=== PATIENT | female | born 1935 | race Caucasian/White ===

== ENCOUNTER 2018-05-24 15:49 | Inpatient (IN) | payer MEDICARE, BC ==
[2018-05-24] MEDS ORDERED: Diabetic Tussin 200 MG/10 ML UDCUP PO PRN (18:07)
[2018-05-24] MEDS ORDERED: Ondansetron PF 4 MG/2 ML Vial IVP PRN ×2 (18:07)
[2018-05-24] MEDS ORDERED: Nitroglycerin 0.4 MG TAB (25 Tab Bottle) SL PRN (18:07)
[2018-05-24] MEDS ORDERED: cloNIDine 0.1 MG TAB PO PRN (18:07)
[2018-05-24] MEDS ORDERED: Bisacodyl 10 MG SUPP PR PRN (18:07)
[2018-05-24] MEDS ORDERED: Senokot S 8.6-50 MG TAB PO PRN ×2 (18:07)
[2018-05-24] MEDS ORDERED: Bisacodyl 5 MG TAB PO PRN (18:07)
[2018-05-24] MEDS ORDERED: Acetaminophen 325 MG TAB PO PRN (18:07)
[2018-05-24] MEDS ORDERED: hydrALAZINE 20 MG/ML VIAL SLOW IVP PRN (18:07)
[2018-05-24] MEDS ORDERED: Sodium Chloride 0.65% Nasal 44 ML BOT EA NARE PRN (18:07)
[2018-05-24] MEDS ORDERED: Benzonatate 100 MG CAP PO PRN (18:07)
[2018-05-24 18:23] LABS: Troponin I 0.037 ng/mL (< 0.028)
--- NOTE | 2018-05-24 19:02 | HP ---
PRIMARY CARE PHYSICIAN: Brandon Houser M.D. CHIEF COMPLAINT: Chest heaviness, shortness of breath and cough of 3 days' duration. HISTORY OF PRESENT ILLNESS: Ms. Gomez is a very pleasant 82-year-old female with past medical his tory of hypertension, hypothyroidism, and dyslipidemia who presented to outside emergency room in [facility] with the above-mentioned complaints. History is mainly obtained by the patient herself and electronic medical records have been reviewed. Ms. Gomez reports that she has been in her usual health but about 3-4 days ago, she started to not ice that her blood pressure is dropping down. Initially, it dropped down to 90s and she stopped taki ng her medications, but it then dropped down to 80s/40s. She experienced some chest heaviness locate d in the upper chest starting from the center and extending both on the right and left side associate d with heaviness of the arms. She also started to have cough everytime she would try to take a deep breath. She also noticed that she is getting progressively short of breath mainly with exertion. Sh e denies any orthopnea or PND. She denies any shortness of breath at rest. She denies any recent il lnesses, fever, or chills. She denies any dysuria, frequency, urgency, abdominal pain, nausea, vomit ing, diarrhea. She denies any edema. She is compliant with her medications otherwise. Upon presentation to the emergency room in [place], her blood pressure was 133/49 and she was sa turating 90% on room air and was afebrile. She underwent general evaluation including a 12-lead EKG, which showed left atrial enlargement, sinus bradycardia, no ST or T-wave changes. Her chest x-ray s howed bilateral pleural effusion consistent with pulmonary edema. Her D-dimer was mildly elevated, s o she underwent a CT angio which was negative for pulmonary embolism, but once again demonstrated berry ateral pleural effusions. Her lab examination showed elevated BNP over 700 and analysis with p ositive bacteria. She was given 40 mg of IV Lasix with 20 mEq of potassium chloride. She was also g iven 1 tablet of double strength Bactrim and half inch of transdermal nitroglycerin and was transferr ed to our facility. Since being presented here, Internal Medicine team has been called to admit the patient for possible new onset congestive heart failure. The patient denies any history of coronary artery disease. She does report history of transient blin dness of the left eye, possibly TIA in the past. PAST MEDICAL HISTORY: 1. Hypertension. 2. Dyslipidemia. 3. Hypothyroidism. 4. Gastroesophageal reflux disease. PAST SURGICAL HISTORY: Cholecystectomy, hysterectomy, and bilateral tubal ligation. FAMILY HISTORY: Significant for one of her brothers having a bypass surgery. Her father lived up hi s 90s but had required a pacemaker towards the end. She denies any other family history of heart att ack or premature coronary artery disease. One of her brothers also had lung cancer but he was a smok er. CODE STATUS: FULL CODE discussed with the patient. ALLERGIES: Include PENICILLIN and TETANUS TOXOID. HOME MEDICATIONS: Not reconciled for now. REVIEW OF SYSTEMS: A 12-point review of systems was done and is negative except for those mentioned in the history and physical. LABORATORY DATA: Her CBC shows WBCs of 11.3, hemoglobin 12.2, platelet count of 230. Her D-dimer wa s elevated to 0.98. Serum chemistries show sodium 134, troponin of 0.034 with normal CK-MB. BNP of 777. Urinalysis is positive for some ketones, leukocyte esterase, wbc's and bacteria. Chest x-ray d one in [place] [facility] by my review shows bilateral pleural effusions as well as mild pul monary vascular congestion. CT angio is negative for pulmonary embolism. Twelve lead EKG by my michael huertas shows sinus bradycardia without any acute ST or T-wave changes. Left atrial enlargement is notice d. PHYSICAL EXAMINATION: VITAL SIGNS: Upon presentation to the emergency room, blood pressure 133/49, pulse of 61, respiratio ns 20, saturating 90% on room air, temperature 99.8. GENERAL: No acute distress. She gets easily winded with long conversation but otherwise awake, aler t, oriented x3. Family is at bedside. HEENT: Mucous membrane is moist and pink. No oropharyngeal exudate or erythema. Head is normocepha lic, atraumatic. Pupils equal, reactive to light and accommodation. Extraocular movement intact. NECK: Supple without any lymphadenopathy, JVD, or bruit. CHEST: Evaluation showed bibasilar crackles and decreased breath sound at bases. CARDIOVASCULAR: Rate and rhythm is regular. 2/6 systolic murmur is best heard at the second interco stal space. ABDOMEN: Soft, nontender, nondistended with positive bowel sounds. EXTREMITIES: Free of any cyanosis, clubbing, or edema. NEUROLOGIC: Examination is nonfocal. SKIN: Free of any rashes or bruises. I feel warm and dry to touch. PSYCHIATRIC: Normal affect. IMPRESSION AND PLAN: 1. Fluid overload. I suspect cardiac in origin at this time. Pulmonary embolism has been ruled out . She has received 1 dose of Lasix and will continue on her IV diuretics and get a transthoracic ech ocardiogram. We will continue to trend serial cardiac enzymes. The patient takes a baby aspirin casey ry other day and we will continue aspirin on a daily basis for now. Check lipid panel and consult Ca rdiology for further evaluation. She will also be evaluated for cardiac rehab if necessary. At this time with left atrial enlargement on EKG, we suspect diastolic dysfunction. 2. Elevated troponin likely demand ischemia from fluid overload, possibly congestive heart failure. We will continue aspirin. Check lipid panel and trend serial cardiac enzymes. Doubtful ACS at this time. 3. Urinary tract infection. We will send the urine for the culture and start her on empiric IV anti biotics, namely levofloxacin. I am not sure if urine cultures were obtained in the outside emergency room or not. 4. History of hypertension, currently well controlled. Her medications will be reconciled, and we w ill restart them. Add p.r.n. antihypertensives. 5. History of hypothyroidism. Her last TSH was done earlier this year according to [employer] in 2017. It was 2.18. We will resume her home medications once confirmed. 6. Dyslipidemia. Restart home medications once confirmed. 7. Code status: FULL CODE. Discussed with the patient in detail. 8. Deep venous thrombosis and gastrointestinal prophylaxis and p.r.n. medication order. DISPOSITION: Ms. Gomez is currently being admitted to the hospital with fluid overload with possi ble new diagnosis of congestive heart failure. Further management will depend upon her clinical cour se but estimated length of stay at this time is at least 2-3 midnights.
[2018-05-24] MEDS: Famotidine 20 MG TAB PO SCH (20:31)
[2018-05-24] MEDS: Simvastatin 20 MG TAB PO SCH (21:14)
[2018-05-24 21:16] LABS: Troponin I 0.039 ng/mL (< 0.028)
--- NOTE | 2018-05-24 23:06 | PDOC.EVN ---
Event Note - Event Note Event Note: RN called - High degree AV block on tele monitor. PLAN: Pacer pads STAT labs NPO
[2018-05-25 00:06] LABS: Anion Gap 12 mmol/L (10-20); BUN (Urea Nitrogen) 14 mg/dL (9.8-20.1); Calc. Creatinine Clearance 53 mL/min (70-130); Calcium 8.9 mg/dL (7.8-10.44); Carbon Dioxide 30 mmol/L (23-31); Chloride 98 mmol/L (98-107); Estimated GFR-MDRD 54; Glucose 103 mg/dL (83-110); Magnesium 1.9 mg/dL (1.6-2.6); Potassium 4.2 mmol/L (3.5-5.1); Sodium 136 mmol/L (136-145)
[2018-05-25 00:12] LABS: Troponin I 0.037 ng/mL (< 0.028)
[2018-05-25] MEDS ORDERED: Atropine Sulfate 1 mg/10 ml Syringe IVP PRN (02:41)
--- NOTE | 2018-05-25 03:14 | PDOC.EVN ---
Event Note - Event Note Event Note: RN called - Pt in CHB on EKG. Will transfer to CCU. Atropine PRN. Dr Joiner updated.
[2018-05-25 05:20] VITALS: BMI 28.6
[2018-05-25 05:47] LABS: #Eosinphils 0.1 thou/uL (0.0-0.7); #Lymphocytes 1.5 thou/uL (1.20-3.40); #Monocytes 1.3 thou/uL (0.11-0.59); #Neutrophils 7.5 thou/uL (1.40-6.50); %Basophils 0.2 % (0.0-1.0); %Eosinophils 1.1 % (0.0-10.0); %Lymphocytes 14.3 % (21.0-51.0); %Monocytes 12.4 % (0.0-10.0); Anion Gap 11 mmol/L (10-20); BUN (Urea Nitrogen) 14 mg/dL (9.8-20.1); Calc. Creatinine Clearance 51 mL/min (70-130); Calcium 9.1 mg/dL (7.8-10.44); Carbon Dioxide 30 mmol/L (23-31); Chloride 98 mmol/L (98-107); Estimated GFR-MDRD 55; Glucose 99 mg/dL (83-110); Hemoglobin 11.9 g/dL (12.0-16.0); Magnesium 2.1 mg/dL (1.6-2.6); Mean Corpuscular HGB CONC 32.3 g/dL (32.0-36.0); Mean Corpuscular Hemoglobin 31.3 pg (27.0-31.0); Mean Platelet Volume 7.1 fL (7.4-10.4); Platelet Count 223 thou/uL (130-400); Potassium 3.9 mmol/L (3.5-5.1); RBC Distribution Width 11.6 % (11.5-14.5); Red Blood Cell (RBC) Count 3.81 mill/uL (4.20-5.40); Sodium 135 mmol/L (136-145); White Blood Cell (WBC) Count 10.4 thou/uL (4.8-10.8)
[2018-05-25] MEDS: Furosemide 40 MG/4 ML VIAL SLOW IVP SCH ×2 (06:01→14:42)
[2018-05-25] MEDS: Levothyroxine Sodium 25 MCG TAB PO SCH (06:01)
[2018-05-25] MEDS ORDERED: Biotin [Biotin] 10,000 MCG PO SCH (09:00)
[2018-05-25] MEDS ORDERED: Amlodipine 5 MG TAB PO SCH (09:00)
[2018-05-25] MEDS ORDERED: MEROPENEM 1 GM/50 ML 1 GM in Premix Bag 1 BAG IVPB SCH (09:00)
[2018-05-25] MEDS ORDERED: Enoxaparin Sodium 40 MG/0.4 ML SYRINGE SC SCH (09:00)
[2018-05-25] MEDS ORDERED: Aspirin 81 mg Enteric Coated Tablet PO SCH (09:00)
[2018-05-25] MEDS ORDERED: Non-Formulary Item 1 EACH (Omeprazole [Omeprazole] 20 MG) PO SCH (09:00)
[2018-05-25] MEDS ORDERED: RED YEAST RICE 600 MG PO SCH ×2 (09:00)
[2018-05-25] MEDS ORDERED: Communication Order-Pharmacy FS SCH (11:30)
[2018-05-25] MEDS ORDERED: Heparin 10,000 UNITS/1 ML VIAL ONE (11:40)
[2018-05-25] MEDS ORDERED: Lidocaine 1% (PF) 30 ML VIAL ONE (11:40)
[2018-05-25] MEDS: Famotidine 20 MG TAB PO SCH ×2 (11:57→20:12)
--- NOTE | 2018-05-25 12:31 | PDOC.PN ---
- Subjective Encounter Start Date: 05/25/18 Encounter Start Time: 12:28 Subjective: feels well. still SOb w exertion & can't take deep breaths -: Transferred to CCU last night for CHB.asympomatic with that - Objective Resuscitation Status: Resuscitation Status FULL:Full Resuscitation MAR Reviewed: Yes Vital Signs & Weight: Vital Signs (12 hours) Temp Pulse BP Pulse Ox 05/25/18 10:40 94 147/81 H 05/25/18 04:00 99.0 F 05/25/18 03:40 94 L Weight Weight 161 lb 9.581 oz Most Recent Monitor Data Heart Rate from ECG 96 NIBP 140/80 NIBP BP-Mean 100 Respiration from ECG 23 SpO2 95 I&O: 05/24/18 05/25/18 05/26/18 06:59 06:59 06:59 Intake Total 0 Balance 0 Result Diagrams: 05/25/18 05:27 05/25/18 05:27 Additional Labs: Laboratory Tests 05/24/18 05/24/18 05/24/18 13:30 17:52 20:42 Troponin I 0.037 H 0.039 H B-Natriuretic Peptide 777.5 H TSH 3rd Generation 05/24/18 05/25/18 05/25/18 23:38 05:27 05:27 Troponin I 0.037 H B-Natriuretic Peptide 920.3 H TSH 3rd Generation 4.1940 Phys Exam - Physical Examination Constitutional: NAD HEENT: PERRLA, moist MMs, sclera anicteric, oral pharynx no lesions Neck: no nodes, no JVD, supple, full ROM Respiratory: no wheezing, no rales, no rhonchi, clear to auscultation bilateral Cardiovascular: RRR, no significant murmur, no rub Gastrointestinal: soft, non-tender, no distention, positive bowel sounds Musculoskeletal: no edema, pulses present Neurological: non-focal, normal sensation, moves all 4 limbs Psychiatric: normal affect, A&O x 3 Skin: no rash Dx/Plan (1) Fluid overload Code(s): E87.70 - FLUID OVERLOAD, UNSPECIFIED Status: Acute (2) CHB (complete heart block) Code(s): I44.2 - ATRIOVENTRICULAR BLOCK, COMPLETE Status: Acute (3) Demand ischemia Code(s): I24.8 - OTHER FORMS OF ACUTE ISCHEMIC HEART DISEASE Status: Acute (4) UTI (urinary tract infection) Status: Acute (5) Dyspnea Code(s): R06.00 - DYSPNEA, UNSPECIFIED Status: Acute (6) HTN (hypertension) Code(s): I10 - ESSENTIAL (PRIMARY) HYPERTENSION Status: Acute (7) HLD (hyperlipidemia) Code(s): E78.5 - HYPERLIPIDEMIA, UNSPECIFIED Status: Acute (8) Hypothyroid Code(s): E03.9 - HYPOTHYROIDISM, UNSPECIFIED Status: Acute - Plan plan discussed w/ family, continue antibiotics, PT/OT, respiratory therapy, incentive spirometry, out of bed/ambulate, DVT proph w/SCDs Pacer pads On.HR better.Cardiology consulted.HD stable -: cont Lasix BID w strict I/Os.ECHO w NL EF -: no evidence of PNA/COPD.O2 ,supportive care -: May need PPM,cardiac Cath.NPO for same -: DC lvaquin gieb Heart block.change to Meropenam. follow Cx results * .CCU monitoring.Azul WNL.monitor * home meds as below * ASA,statin * Review of Systems - Review of Systems Constitutional: weakness. negative: fever, chills, sweats, malaise, other Respiratory: Cough, SOB with Excertion Cardiovascular: negative: chest pain, palpitations, orthopnea, paroxysmal nocturnal dyspnea, edema, light headedness, other Gastrointestinal: negative: Nausea, Vomiting, Abdominal Pain, Diarrhea, Constipation, Melena, Hematochezia, Other Genitourinary: negative: Dysuria, Frequency, Incontinence, Hematuria, Retention , Other Musculoskeletal: negative: Neck Pain, Shoulder Pain, Arm Pain, Back Pain, Hand Pain, Leg Pain, Foot Pain, Other Neurological: negative: Weakness, Numbness, Incoordination, Change in Speech, Confusion, Seizures, Other - Medications/Allergies Allergies/Adverse Reactions: Allergies Allergy/AdvReac Type Severity Reaction Status Date / Time Penicillins Allergy Verified 05/25/18 10:50 Tetanus Vaccines and Toxoid Allergy Verified 05/25/18 10:50 Medications: Current Medications Acetaminophen (Tylenol) 650 mg PO Q4H PRN PRN Reason: Headache/Fever Acetaminophen (Tylenol) 1,000 mg PO Q6H PRN PRN Reason: Mild Pain (1-3) Amlodipine Besylate (Norvasc) 2.5 mg PO DAILY [facility] Last Admin: 05/25/18 10:40 Dose: 2.5 mg Aspirin (Ecotrin) 81 mg PO DAILY [facility] Last Admin: 05/25/18 10:41 Dose: 81 mg Benzonatate (Tessalon) 100 mg PO Q6H PRN PRN Reason: Cough Bisacodyl (Dulcolax) 10 mg PO DAILYPRN PRN PRN Reason: Constipation Bisacodyl (Dulcolax) 10 mg OK DAILYPRN PRN PRN Reason: Constipation Famotidine (Pepcid) 20 mg PO BID [facility] Last Admin: 05/25/18 11:57 Dose: Not Given Furosemide (Lasix) 40 mg SLOW IVP 0600,1400 [facility] Last Admin: 05/25/18 06:01 Dose: 40 mg Guaifenesin (Robitussin Sf) 200 mg PO Q4H PRN PRN Reason: Cough Hydralazine HCl (Apresoline) 10 mg SLOW IVP Q4H PRN PRN Reason: SBP > 180 and HR < 70 Meropenem 1 gm/ Device 50 mls @ 100 mls/hr IVPB 0100,0900,1700 [facility] Last Admin: 05/25/18 10:40 Dose: 50 mls Levothyroxine Sodium (Synthroid) 25 mcg PO 0600 [facility] Last Admin: 05/25/18 06:01 Dose: 25 mcg Miscellaneous Information (Communication Order-Pharmacy) 0 each FS ONE [facility] Stop: 05/26/18 11:31 Nitroglycerin (Nitrostat) 0.4 mg SL Q5MIN PRN PRN Reason: Chest Pain Ondansetron HCl (Zofran) 4 mg IVP Q6H PRN PRN Reason: Nausea/Vomiting Pantoprazole Sodium (Protonix) 40 mg PO MWF [facility] Last Admin: 05/25/18 10:41 Dose: 40 mg Senna/Docusate Sodium (Senokot S) 2 tab PO BIDPRN PRN PRN Reason: Constipation Simvastatin (Zocor) 20 mg PO QPM [facility] Last Admin: 05/24/18 21:14 Dose: 20 mg Sodium Chloride ([place] Nasal [place] 0.65%) 0 ml EA NARE QIDPRN PRN PRN Reason: Nasal Congestion Sodium Chloride (Flush - Normal Saline) 10 ml IVF Q12HR [facility] Last Admin: 05/25/18 10:41 Dose: 10 ml Sodium Chloride (Flush - Normal Saline) 10 ml IVF PRN PRN PRN Reason: Saline Flush
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
[2018-05-25] MEDS ORDERED: Acetaminophen/Codeine 30-300mg Tablet PO PRN ×2 (12:57)
[2018-05-25] MEDS ORDERED: Nitroglycerin 0.4 MG TAB (25 Tab Bottle) SL PRN (12:57)
[2018-05-25] MEDS ORDERED: Sodium Chloride 0.9% 200 ML IV SCH (13:00)
[2018-05-25] MEDS ORDERED: Sodium Chloride 0.9% 1,000 ML IV SCH (13:00)
[2018-05-25] MEDS ORDERED: Iopamidol 370 76% 100 ML VIAL ONE (13:32)
[2018-05-25] MEDS ORDERED: Iopamidol 370 76% 50 ML VIAL FS ONE (13:32)
--- NOTE | 2018-05-25 13:57 | CON ---
DATE OF CONSULTATION: 05/25/2018 SERVICE: Pulmonary Medicine REASON FOR CONSULTATION: ICU patient. HISTORY OF PRESENT ILLNESS: The patient is a very pleasant 82-year-old white female with past medica l history significant for essentially nothing. She presented to the hospital with a 3-4 day increasi ng shortness of breath and dyspnea with exertion. She was fine as long as she was resting. She did not endorse any orthopnea, fevers, chills, nausea, vomiting, cough, sputum production, diarrhea, or d ysuria. She did not have any hot, red, swollen joints, arthralgias. Ultimately, she was tucked into the hospital because of an abnormal rhythm. She was on the telemetry unit. when she went into what was identified as a third degree heart block. She was subsequently brought to the ICU for closer obs ervation. She is not currently requiring any rate control medications and no interventions were requ ired though she is wearing pacer pads at this time. She maintains good blood pressure. Ultimately, she is feeling a little bit better compared to prior. At some point, somebody suggested she may requ corbin a pacemaker. At this point, Cardiology opinion is pending. PAST MEDICAL HISTORY: 1. Hypertension. 2. Dyslipidemia. 3. Hypothyroidism. 4. Gastroesophageal reflux disease. 5. 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 PAST SURGICAL HISTORY: 1. Cholecystectomy. 2. Hysterectomy. 3. Jaw surgery. 4. Tubal ligation. SOCIAL HISTORY: Negative for alcohol, tobacco or illicit drug use. She has no exposure to chemicals , dust asbestos or tuberculosis. FAMILY HISTORY: Noncontributory. ALLERGIES: PENICILLIN, TETANUS. MEDICATIONS: List of her inpatient medications were reviewed. No specific updates were made at this time. REVIEW OF SYSTEMS: General, head, ears, eyes, nose, throat, cardiovascular, respiratory, GI, , mus culoskeletal, neurologic and skin is negative except as mentioned in the HPI. PHYSICAL EXAMINATION: VITAL SIGNS: Afebrile, pulse 96, blood pressure 140/80, respirations 23, saturation 100% on 2 liters nasal cannula. GENERAL: The patient is awake, alert, in no apparent distress. LUNGS: Decent air entry. There is no prolonged expiratory phase or wheezing present. No rhonchi or crackles are appreciated. HEART: Normal rate, regular. ABDOMEN: Soft, nontender, nondistended. Bowel sounds are positive. MUSCULOSKELETAL: No cyanosis or clubbing. There is no pitting in the bilateral lower extremities. NEUROLOGIC: Grossly nonfocal. LABORATORY: WBC 10.4, hemoglobin 11.9, platelets 223,000. Basic metabolic profile is completely unr emarkable. BNP 920 and gently up trending, TSH 4.1. IMAGIN. Echocardiogram demonstrates a normal ejection fraction. Left atrium is mildly dilated. Moderate mitral regurgitation is noted. Aortic regurgitation, and tricuspid regurgitation is also identified . 2. CTA of the chest demonstrates minimal bilateral pleural effusions, interstitial fullness, bibasil ar atelectasis, and some ground glass opacification scattered throughout bilateral lung thornton, all c onsistent all congruent with volume overload. Left atrium is enlarged. There is a small amount of r eflux into the inferior vena cava. That being said, the left ventricle has a normal contour despite the fact the right ventricle is a touch overloaded. 3. CT of the brain demonstrates no obvious acute intracranial abnormality is noted, but radiology's opinion is currently pending. ASSESSMENT: 1. Second-degree heart block. 2. Acute hypoxic respiratory failure, improved. 3. Acute on chronic diastolic heart failure. 4. Hypothyroidism. DISCUSSION AND PLAN: All home medicines will be continued. Antibiotics will be interrupted as I do not see any clear evidence of an infection. This was a clean catch specimen. We will continue to di urese the patient until she returns to euvolemia. She is currently fast approaching that. I agree w [facility] tomorrow morning. Magnesium will also be checked. She will remain in the ICU for the time sigrid hopkins. We will start to get her out of bed and into a chair 2-3 times on a daily basis.
--- NOTE | 2018-05-25 14:22 | CT ---
CT HEAD WITH IV CONTRAST: History: Left sided weakness. Recent heart catheterization. FINDINGS: Exam is labelled as a noncontrast study. The recent catheterization, however, put hyperdense contrast material throughout the vascular structures so that this is a contrast enhanced exam. A precontrast study is not available for direct comparison. There is no evidence of acute intracranial infarct. No significant hemorrhage is visible, although a tiny amount could be obscured by the contrast material. No abnormal areas of contrast enhancement. Th e ventricles appear normal in size, shape, and position. IMPRESSION: 1. No acute intracranial abnormalities are demonstrated. Findings were called to Dr. Diaz at 1259 hours. Code CR POS: [facility]
--- NOTE | 2018-05-25 15:47 | PQF ---
CLINICAL DOCUMENTATION IMPROVEMENT CLARIFICATION FORM: ICD-10 Updated PLEASE DO AN ADDENDUM TO THE PROGRESS NOTE WITH ANY DOCUMENTATION UPDATES OR ADDITIONS AND CARRY THROUGH TO DC SUMMARY. THANK YOU. DATE: 05/25/1805-27-18 ATTN: DR. BOUCHER / DR. TOLENTINO Please exercise your independent, professional judgment in responding to the clarification form. Clinical indicators are provided on the bottom of this form for your review Please check appropriate box(s): HEART FAILURE: A. TYPE: [ ] Systolic / HFrEF [x ] Diastolic / HFpEF [ ] Combined Systolic / Diastolic B. ACUITY [ ] Acute [ x ] Acute on Chronic [ ] Chronic [ ] Other diagnosis [ ] Unable to determine In addition, please specify: Present on Admission (POA): [x ] Yes [ ] No [ ] Unable to determine For continuity of documentation, please document condition throughout progress notes and discharge summary. Thank You. CLINICAL INDICATORS - SIGNS / SYMPTOMS / LABS H&P: "POSSIBLE CONGESTIVE HEART FAILURE" CONSULTATION NOTE 05/25 (SHARITA): "ACUTE ON CHRONIC DIASTOLIC HEART FAILURE, IMPROVED" 05-26 (SANJUANA) FLUID OVERLOAD - RESOLVED BNP 05/25: 920.3 RISKS: FLUID OVERLOAD HYPERTENSION BILATERAL PLEURAL EFFUSIONS (PER CONSULTATION NOTE 05/25) TREATMENT: "1 DOSE OF LASIX AND WILL CONTINUE ON HER IV DIURETICS" IV LASIX (STARTED 05/25) CRITICAL CARE MONITORING CARDIOLOGY CONSULT ECHOCARDIOGRAM SERIAL LABS (This form is maintained as a part of the permanent medical record) [employer] Administrator [employer] 2015 [employer]. All Rights Reserved [email or web address] [email or web address] Office: [phone] [facility] [facility] [email or web address]
--- NOTE | 2018-05-25 16:50 | EKG ---
Test Reason : STAT Blood Pressure : / mmHG Vent. Rate : 074 BPM Atrial Rate : 098 BPM P-R Int : 000 ms QRS Dur : 082 ms QT Int : 396 ms P-R-T Axes : 040 024 024 degrees QTc Int : 439 ms Sinus rhythm with 2nd degree A-V block (Mobitz I) with Abnormal ECG When compared with ECG of 29-MAY-2013 10:21, Premature supraventricular complexes are now Present Sinus rhythm is now with 2nd degree A-V block (Mobitz I) Confirmed by DR. Girish VIERA ([id number]) on 05/25/2018 4:49:41 PM Referred By: RAJAN Confirmed By:DR. Girish VIERA
--- NOTE | 2018-05-25 16:55 | ULT ---
CAROTID DUPLEX SONOGRAM: Date: 05/25/18 HISTORY: TIA. Vascular disease. FINDINGS: RIGHT: Minimal plaque. Color and spectral Doppler evaluation, peak systolic velocity of 55 cm/second, and IC A/CCA ratio of 0.6 suggests no hemodynamically significant stenosis within the extracranial right ICA . Antegrade flow is present within the vertebral artery. LEFT: Minimal plaque. Color and spectral Doppler evaluation, peak systolic velocity of 74 cm/second, and IC A/CCA ratio of 1.1 suggests no hemodynamically significant stenosis within the extracranial left ICA. Antegrade flow is present within the vertebral artery. IMPRESSION: No sonographic evidence of significant extracranial ICA stenosis. POS: NICOLE
[2018-05-25] MEDS: Cefdinir 300 MG CAP PO SCH (20:12)
[2018-05-25] MEDS: Simvastatin 20 MG TAB PO SCH (20:12)
--- NOTE | 2018-05-26 02:19 | CON ---
DATE OF CONSULTATION: 05/25/2018 CHIEF COMPLAINT: Acute left-sided weakness. HISTORY OF PRESENT ILLNESS: Patient is an 82-year-old lady who was admitted today following difficul ty with breathing and she was found to have heart block and she was admitted for heart block and she went through a cardiac catheterization procedure today and she was noted to have drop in blood pressu re and chest heaviness from upper chest wall and extending to the right and left side with heaviness of her forearms and difficulty in breathing and her blood pressures changed and she was admitted for further evaluation and she did go through a cardiac catheterization on 05/25/2018 and she completed t he procedure and developed sudden onset of left-sided weakness including face, arm and leg. This las clay a few minutes. She has also had difficulty getting the words out. There is no history of headac he, no numbness, no dizziness, no vision problems. Symptoms lasted a few minutes and completely reso lved and at the time of my consultation with her this evening, she was back to baseline. 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 PAST SURGICAL HISTORY: She has cholecystectomy probably in the 1980s, hysterectomy in 1941, tubal li gation. FAMILY HISTORY: She has 3 brothers and 2 sisters, one brother at age 83 from lung cancer and al l these other 3 brothers and 2 sisters are younger than her. One of her brothers who is in his 70s u nderwent a coronary artery bypass graft. The patient has 4 children, 4 boys, two of them at age s 33 and 24. One in a motor vehicle accident run over by a 16-year-old while she was walking an d the second one in a jet ski accident. ALLERGIES: She is allergic to PENICILLIN, TETANUS. She gets a rash and it develops up everywhere. SOCIAL HISTORY: The patient lives with her and she is her 's caregiver and she does n ot drink alcohol or smoke. LABORATORY DATA AND IMAGING DATA: White count 10.4, hemoglobin 11.9, hematocrit is 36.9, platelet co unt 223. Coagulation activated clotting time is 134. Chemistry: Sodium 135, potassium 3.9, chlorid e 98, bicarbonate 30, BUN 14, creatinine 0.97, BNP is 920.3 and TSH 4.[address] scan of the head which was done stat showed no acute intracranial abnormalities and she was run straight from the card iac catheterization lab into the CT scanner since she had the event, it was capped and her carotid Do pplers do not show any sonographic evidence of significant extracranial ICA stenosis. CURRENT MEDICATIONS: She is on Tylenol #3, aspirin 325 mg per day, Dulcolax suppository, Omnicef 300 mg b.i.d., Pepcid 20 mg b.i.d., Lasix 40 mg per day, Robitussin 200 mg q.4 p.r.n., Apresoline 10 mg slow IV push q.4 hours p.r.n., levothyroxine 25 mcg daily, Zocor 20 mg per day, Protonix 40 mg on Fri, Friday and Friday, Ultram 50 mg q.6 hours p.r.n. REVIEW OF SYSTEMS: PULMONARY: Positive for shortness of breath. CARDIAC: Positive for heaviness o f the chest and irregular heart rate. GASTROINTESTINAL: Negative for any abdominal pain or diarrhea or vomiting or nausea. HEMATOLOGIC: Negative for any bleeding diatheses. DERMATOLOGIC: Normal. NEUROLOGICAL: Transient left face, arm and leg weakness. ENDOCRINE: Negative for any thyroid dysfu nction. PHYSICAL EXAMINATION: VITAL SIGNS: Blood pressure was 142/86, pulse was 77, respiratory rate 22, and patient was afebrile. CHEST: Clear vesicular breathing. CARDIOVASCULAR: S1, S2 heard, no murmurs. Carotids are clear. ABDOMEN: Soft, nontender, no organomegaly noted. NEUROLOGIC: Higher intellectual functions. Patient is alert, awake, oriented to time, place and per son and appropriate conversation. Cranial nerves II-XII, pupils reactive to light and accommodation. Normal extraocular movements. Normal sensation of face bilaterally. Normal strength of facial mus cles bilaterally. She had very mild flattening of the nasolabial fold on the left side. Normal hear ing to finger rub bilaterally. Tongue midline, no atrophy noted. Normal elevation of palate. Motor : Bulk normal, tone normal, strength 5/5 throughout in iliopsoas, hamstrings, quadriceps, ankle dors iflexion, plantar flexion. Primarily, lower extremity exam was performed on the left side only. Rig ht side was not performed due to her fresh cardiac catheterization today. She had a catheterization site which had to be held stable and upper extremity strength was 5/5 bilaterally. Sensory normal to uch and proprioception and deep tendon reflexes were 1+ throughout. Cerebellar could not be tested. Gait not tested. IMPRESSION: The patient is an 82-year-old lady who came in with chest pain and difficulty with heavi ness of her shoulders and arms. Her clinical examination is normal except for the left eye. She had no light perception in the left eye and her vision was limited to the hand movement only. We were u nable to assess the right lower extremity. Clinical findings and history are most consistent with a transient ischemic attack in the setting of heart block and cardiac catheterization. The patient is stable and neurologically normal at the time of our consultation. Prior to my consultation, Dr. Brandy bailey called me about her weakness and I suggested she be evaluated for IV TPA. However, she did not n eed to have IV TPA due to quick resolution of all her neurological symptoms. RECOMMENDATIONS: I discussed the case with Dr. Urias and unfortunately due to plans for pacemaker placement tomorrow and her cardiac abnormalities and fluctuations in her heart rate, she is not a can didate for MRI of the brain. She is planned for pacemaker tomorrow. We can obtain a CT angiogram of the head and neck after pacemaker implantation when patient is more stable from a cardiac standpoint to make sure we evaluate her cerebral vasculature. Please continue aspirin for stroke prophylaxis. Call Neurology if you have any further questions. Thank you for requesting this consultation.
[2018-05-26 05:01] LABS: Anion Gap 14 mmol/L (10-20); BUN (Urea Nitrogen) 18 mg/dL (9.8-20.1); Calc. Creatinine Clearance 43 mL/min (70-130); Calcium 9.4 mg/dL (7.8-10.44); Carbon Dioxide 32 mmol/L (23-31); Chloride 95 mmol/L (98-107); Estimated GFR-MDRD 46; Glucose 100 mg/dL (83-110); Magnesium 1.8 mg/dL (1.6-2.6); Potassium 3.3 mmol/L (3.5-5.1); Sodium 138 mmol/L (136-145)
[2018-05-26] MEDS: Furosemide 40 MG/4 ML VIAL SLOW IVP SCH ×2 (05:21→13:53)
[2018-05-26] MEDS: Levothyroxine Sodium 25 MCG TAB PO SCH (05:24)
[2018-05-26] MEDS ORDERED: Clindamycin/D5W 600 mg/50 ml Premix Bag ONE (07:34)
[2018-05-26] MEDS ORDERED: Levofloxacin 500 mg/D5W 100 ml Premix Bag ONE (07:34)
[2018-05-26] MEDS ORDERED: Midazolam HCl 2 mg/2 ml Vial ONE (09:37)
[2018-05-26] MEDS ORDERED: Fentanyl 100 MCG/2 ML VIAL ONE (09:37)
[2018-05-26] MEDS ORDERED: Lidocaine 1% (PF) 30 ML VIAL ONE ×2 (09:45→09:51)
[2018-05-26] MEDS ORDERED: Metoprolol Tartrate 5 MG/5 ML VIAL ONE (10:33)
[2018-05-26] MEDS: Cefdinir 300 MG CAP PO SCH ×2 (11:52→20:58)
[2018-05-26] MEDS: Aspirin 325 mg Enteric Coated Tablet PO SCH (11:53)
--- NOTE | 2018-05-26 12:05 | PDOC.PN ---
- Subjective Encounter Start Date: 05/26/18 Encounter Start Time: 12:03 Subjective: nsg notes rev, kam ovn, no new c/o seen s/p PPM placement with dtr -: and at bedside. no pain, no weakness - Objective Resuscitation Status: Resuscitation Status FULL:Full Resuscitation Vital Signs & Weight: Vital Signs (12 hours) Temp Pulse Ox 05/26/18 12:00 98.2 F 05/26/18 08:00 94 L 05/26/18 07:00 98.4 F 05/26/18 04:00 98.1 F Weight Admit Weight 161 lb Weight 172 lb 2.896 oz Most Recent Monitor Data Heart Rate from ECG 81 NIBP 122/67 NIBP BP-Mean 85 Respiration from ECG 15 SpO2 97 I&O: 05/25/18 05/26/18 05/27/18 06:59 06:59 06:59 Intake Total 0 693 240 Output Total 4450 250 Balance 0 -3757 -10 Result Diagrams: 05/25/18 05:27 05/26/18 04:23 Phys Exam - Physical Examination Constitutional: NAD Dx/Plan - Plan Constitutional: NAD HEENT: PERRLA, moist MMs, sclera anicteric, oral pharynx no lesions Neck: no nodes, no JVD, supple, full ROM Respiratory: no wheezing, no rales, no rhonchi, clear to auscultation bilateral Cardiovascular: RRR, no significant murmur, no rub, PPM insertion site is c/d/i w/o surrounding erythema or tenderness to palpation Gastrointestinal: soft, non-tender, no distention, positive bowel sounds Musculoskeletal: no edema, pulses present Neurological: non-focal, normal sensation, moves all 4 limbs Psychiatric: normal affect, A&O x 3 Dx/Plan (1) Fluid overload Code(s): E87.70 - FLUID OVERLOAD, UNSPECIFIED Status: Acute, resolved pt is post procedure, will order diet, d/c IVF continue on lasix, monitor BMP (2) CHB (complete heart block) Code(s): I44.2 - ATRIOVENTRICULAR BLOCK, COMPLETE Status: Acute s/p PPM, tolerated procedure well (3) Demand ischemia Code(s): I24.8 - OTHER FORMS OF ACUTE ISCHEMIC HEART DISEASE Status: Acute. stablized cont ASA, statin (4) UTI (urinary tract infection) Status: Acute currently on meropenem for presumptive klebsiella/ enterobacter and pending sensitivities prev was on levaquin which was d/c'd in favor of meropenem due to heart block (5) Dyspnea Code(s): R06.00 - DYSPNEA, UNSPECIFIED Status: Acute. improved significantly improved OOB as tolerated (6) HTN (hypertension) Code(s): I10 - ESSENTIAL (PRIMARY) HYPERTENSION stable (7) HLD (hyperlipidemia) Code(s): E78.5 - HYPERLIPIDEMIA, UNSPECIFIED Chronic (8) Hypothyroid Code(s): E03.9 - HYPOTHYROIDISM, UNSPECIFIED chronic diet: cardiac activity: as nelida, OOB dvt ppx d/w pt, pts dtr, pts , and bed nursing stable for transfer to [facility] Review of Systems - Medications/Allergies Allergies/Adverse Reactions: Allergies Allergy/AdvReac Type Severity Reaction Status Date / Time Penicillins Allergy Verified 05/25/18 10:50 Tetanus Vaccines and Toxoid Allergy Verified 05/25/18 10:50 Medications: Current Medications Acetaminophen (Tylenol) 650 mg PO Q4H PRN PRN Reason: Headache/Fever Acetaminophen (Tylenol) 1,000 mg PO Q6H PRN PRN Reason: Mild Pain (1-3) Acetaminophen/Codeine Phosphate (Tylenol #3) 1 tab PO Q4H PRN PRN Reason: Moderate Pain (4-6) Acetaminophen/Codeine Phosphate (Tylenol #3) 2 tab PO Q4H PRN PRN Reason: Severe Pain (7-10) Aspirin (Ecotrin) 325 mg PO DAILY [facility] Last Admin: 05/26/18 11:53 Dose: 325 mg Bisacodyl (Dulcolax) 10 mg PO DAILYPRN PRN PRN Reason: Constipation Bisacodyl (Dulcolax) 10 mg MD DAILYPRN PRN PRN Reason: Constipation Cefdinir (Omnicef) 300 mg PO BID [facility] Stop: 05/27/18 21:01 Last Admin: 05/26/18 11:52 Dose: 300 mg Ciprofloxacin (Cipro) 500 mg PO BID@0600,2000 [facility] Stop: 05/31/18 23:59 Famotidine (Pepcid) 20 mg PO 2100 [facility] Furosemide (Lasix) 40 mg SLOW IVP 0600,1400 [facility] Last Admin: 05/26/18 05:21 Dose: 40 mg Guaifenesin (Robitussin Sf) 200 mg PO Q4H PRN PRN Reason: Cough Hydralazine HCl (Apresoline) 10 mg SLOW IVP Q4H PRN PRN Reason: SBP > 180 and HR < 70 Levothyroxine Sodium (Synthroid) 25 mcg PO 0600 [facility] Last Admin: 05/26/18 05:24 Dose: Not Given Metoprolol Succinate (Toprol Xl) 50 mg PO DAILY [facility] Metoprolol Tartrate (Lopressor) 25 mg PO 1500 [facility] Stop: 05/26/18 17:00 Ondansetron HCl (Zofran) 4 mg IVP Q6H PRN PRN Reason: Nausea/Vomiting Pantoprazole Sodium (Protonix) 40 mg PO MWF [facility] Last Admin: 05/26/18 11:52 Dose: 40 mg Potassium Chloride (Klor-Con) 40 meq PO 1200 [facility] Stop: 05/26/18 18:00 Last Admin: 05/26/18 11:53 Dose: 40 meq Senna/Docusate Sodium (Senokot S) 2 tab PO BIDPRN PRN PRN Reason: Constipation Simvastatin (Zocor) 20 mg PO QPM [facility] Last Admin: 05/25/18 20:12 Dose: 20 mg Sodium Chloride ([place] Nasal [place] 0.65%) 0 ml EA NARE QIDPRN PRN PRN Reason: Nasal Congestion Sodium Chloride (Flush - Normal Saline) 10 ml IVF Q12HR [facility] Last Admin: 05/26/18 11:53 Dose: 10 ml Sodium Chloride (Flush - Normal Saline) 10 ml IVF PRN PRN PRN Reason: Saline Flush Tramadol HCl (Ultram) 50 mg PO Q6H PRN PRN Reason: Moderate Pain (4-6)
[2018-05-26] MEDS: Acetaminophen 500 MG TAB PO PRN ×2 (13:50→18:36)
[2018-05-26] MEDS ORDERED: Potassium Chloride 20 MEQ TAB PO SCH (16:00)
[2018-05-26] MEDS: Metoprolol Tartrate 25 MG TAB PO SCH ×2 (16:51→18:53)
--- NOTE | 2018-05-26 16:59 | PRG ---
DATE OF SERVICE: 05/26/2018 SERVICE: Pulmonary Medicine. INTERVAL HISTORY: The patient is doing fine from a respiratory standpoint. She did not have any oth er chest discomfort overnight. Her strength is improving. She is not having shortness of breath or dyspnea that limits her activity. She is not having any lightheadedness spells. She feels that she is about 90% back to baseline and there were no significant events on telemetry. PHYSICAL EXAMINATION: VITAL SIGNS: Afebrile, pulse 87, blood pressure 117/70, respirations 23, saturation 94% on 3 liters nasal cannula. GENERAL: The patient is awake, alert, no apparent distress. LUNGS: Decent air entry. There are minimal dependent crackles present. No prolonged expiratory pha se or wheezing is appreciated. HEART: Normal rate, regular. ABDOMEN: Soft, nontender, nondistended. Bowel sounds positive. MUSCULOSKELETAL: No cyanosis or clubbing. Trace 1+ pitting in the bilateral lower extremities is pr esent. NEUROLOGIC: Grossly nonfocal. LABORATORY DATA: Potassium 3.3. Basic metabolic profile is otherwise unremarkable. BNP 920, is gen tly up trending. TSH falls within the normal limits. Urine culture is growing presumptive Klebsiell a although this was a clean catch specimen. ASSESSMENT: 1. Second degree heart block. 2. Acute hypoxic respiratory failure, resolving. 3. Acute on chronic diastolic heart failure. 4. Hypothyroidism. 5. Hypokalemia. DISCUSSION AND PLAN: We will back off Lasix to once daily. Potassium will be replaced x80 mEq. Pac milind is being planned for today. Once this is in, we will transition her out of the ICU to the [facility] emetry unit.
--- NOTE | 2018-05-26 18:18 | RAD ---
PORTABLE CHEST ONE VIEW: 05/26/18 HISTORY: 82-year-old female with history of post CCD. Left ICD has been placed. No pneumothorax or pleural effusion. Monitor leads overlie the chest. IMPRESSION: No pneumothorax or pleural effusion following left ICD placement. POS: JUDAH
[2018-05-26] MEDS: Simvastatin 20 MG TAB PO SCH (20:58)
[2018-05-26] MEDS ORDERED: Famotidine 20 MG TAB PO SCH (21:00)
[2018-05-26] MEDS: traMADol HCl 50 MG TAB PO PRN (21:05)
--- NOTE | 2018-05-26 23:43 | CCL ---
PROCEDURE: Permanent pacemaker insertion. INDICATION: Mobitz type I and Mobitz type II secondary degree A-V block. Patient was brought to cardiac labor expediter. The left subclavian area was prepped and draped. Versed 1 mg and fentanyl 25 mg given intravenously for IV conscious sedation. The area was prepped and draped. 1% lidocaine was infiltrated. A J-wire was placed into the left subclavian vein and advanced into the superior vena cava. Pacemaker pocket was then manufactured using blunt and sharp dissection with electrocautery for hemostasis. Antibiotic solution soaked gauze was placed into the subcutaneous pocket. A second J-wire was then placed into the left subclavian vein. Using a 7 Czech peel-away sheaths, the ventricular and atrial leads were inserted. The ventricular lead was advanced to the RV apex and screwed into place. The right atrial lead was screwed into the right atrium. Ventricular lead - R-wave 9.2, impedance 975, threshold 0.5 volts. Right atrial lead - P- waves 6.0, impedance 612, threshold 0.6 volts. The tabs on the suture tie downs were removed and both leads were secured in place with two sutures of 0 silk. The solution soaked gauze was removed from the pocket and this was irrigated with copious amounts of antibiotic solution. The leads were attached to the pacemaker generator and this was inserted into the pocket and secured in place with one suture of 0 silk. Incision was then closed using two layers of running 3-0 Vicryl, one layer running 4-0 Vicryl. Dermabond was placed on the incision. Patient tolerated the procedure well. CYNTHIA
--- NOTE | 2018-05-27 02:53 | PRG ---
DATE OF SERVICE: 05/26/2018 CHIEF COMPLAINT: TIA. INTERVAL HISTORY: Patient reports she is doing well. She had a pacemaker implantation completed tod ay and she remains stable. LABORATORY DATA: No additional labs or imaging studies available at the time of my visit this ibrahima barrera is post procedure. PHYSICAL EXAMINATION: VITAL SIGNS: Blood pressure was 122/67, pulse 85, temperature 98.2. NEUROLOGIC: Alert, oriented to time, place and person. She does not report any complaints. Cranial nerve examination; normal extraocular movements, mild facial asymmetry with flattening of left nasol abial fold and tongue midline, no atrophy noted. Motor: Bulk normal, tone normal, strength is 5/5 i n upper and lower extremities and there was some restriction with the left upper extremity testing du e to pacemaker placement. IMPRESSION: The patient is an 82-year-old lady who had transient symptoms post-cardiac catheterizati on; however, she has done well and remained stable. Her total duration of the event was very limited and her symptoms completely resolved. At this time, diagnosis is most consistent with transient isc hemic attack. RECOMMENDATIONS: Please call Neurology if you have any further question.
[2018-05-27 05:52] LABS: Anion Gap 13 mmol/L (10-20); BUN (Urea Nitrogen) 32 mg/dL (9.8-20.1); Calc. Creatinine Clearance 39 mL/min (70-130); Calcium 9.3 mg/dL (7.8-10.44); Carbon Dioxide 30 mmol/L (23-31); Chloride 97 mmol/L (98-107); Estimated GFR-MDRD 37; Glucose 95 mg/dL (83-110); Potassium 4.5 mmol/L (3.5-5.1); Sodium 135 mmol/L (136-145)
[2018-05-27] MEDS: Levothyroxine Sodium 25 MCG TAB PO SCH (06:04)
[2018-05-27] MEDS: traMADol HCl 50 MG TAB PO PRN (06:24)
[2018-05-27] MEDS ORDERED: Furosemide 40 MG/4 ML VIAL SLOW IVP SCH (09:00)
[2018-05-27] MEDS: Aspirin 325 mg Enteric Coated Tablet PO SCH (09:14)
[2018-05-27] MEDS: Cefdinir 300 MG CAP PO SCH (09:14)
[2018-05-27 09:59] VITALS: TEMP 97.7
[2018-05-27 14:44] VITALS: BP 126/72
--- NOTE | 2018-05-27 15:16 | PRG ---
DATE OF SERVICE: 05/27/2018 SERVICE: Pulmonary Medicine. INTERVAL HISTORY: The patient continues to be breathing okay. I went by the Pathology. They are davis ggesting to me that they feel that they are seeing a significant amount of cancer cells present. 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 Special stains on a cell bl ock are currently pending. That being said, the patient is breathing comfortably. She did not have any fevers, chills or overnight events. PHYSICAL EXAMINATION: VITAL SIGNS: Afebrile, pulse 99, blood pressure 123/81, respirations 18, saturation 95% on room air. GENERAL: The patient is awake and alert, in no apparent distress. LUNGS: Decent air entry. There is no prolonged expiratory phase. Dependent crackles are not presen t. No rhonchi or wheezing are appreciated. HEART: Normal rate, regular. ABDOMEN: Soft, nontender, nondistended. Bowel sounds are positive. MUSCULOSKELETAL: No cyanosis or clubbing. There is no pitting in the bilateral lower extremities. NEUROLOGIC: Grossly nonfocal. LABORATORY DATA: WBC 6.1, hemoglobin 12.2, platelets 319,000. Acid fast smear is negative. Body fl uid culture remains negative to date. ASSESSMENT: 1. Malignant pleural effusion on the left, status post thoracentesis, final pathology pending. 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 2. Acute hypoxic respiratory failure, resolved. 3. Family history of lung cancer. DISCUSSION AND PLAN: Once again, we are awaiting the results of the cytology. There is a cell block on which special stains are is currently pending. I have told the patient about the suspicion that we have for cancer. I am placing an Oncology referral. Once a discussion occurs between Oncology an d the patient, she could be considered for transition home. I do not think there is a pneumonia pres ent, but one cannot be excluded. As such, I think it is reasonable to complete a 5-day course of ant ibiotic.
--- NOTE | 2018-05-27 15:17 | PRG ---
DATE OF SERVICE: 05/27/2018 SERVICE: Pulmonary Medicine. INTERVAL HISTORY: The patient is actually doing really well from a respiratory standpoint. No chest pain, fevers, chills, nausea or vomiting. She has got some chest wall discomfort where the pacemake r was recently placed. Her strength has improved dramatically. PHYSICAL EXAMINATION: VITAL SIGNS: Afebrile, pulse 97, blood pressure 139/82, respirations 22, saturation 91% on room air. GENERAL: The patient is awake, alert, no apparent distress. LUNGS: Decent air entry with no prolonged expiratory phase or wheezing present. HEART: Normal rate, regular. ABDOMEN: Soft, nontender, nondistended. Bowel sounds positive. MUSCULOSKELETAL: No cyanosis or clubbing. There is no pitting in the bilateral lower extremities. NEUROLOGIC: Grossly nonfocal. LABORATORY DATA: Creatinine 1.35. Basic metabolic profile is otherwise unremarkable. BNP previousl y 920. Urine cultures growing Klebsiella pneumoniae. ASSESSMENT: 1. Second-degree heart block, status post pacemaker placement. 2. Acute hypoxic respiratory failure, resolved. 3. Acute on chronic diastolic heart failure. 4. Hypothyroidism. 5. Hypokalemia. DISCUSSION AND PLAN: The patient is stable for transition out of the hospital. Her acute kidney inj ury is possibly secondary to her low cardiac output state on presentation in conjunction with aggress nannette diuretics, this should resolve through time. From my perspective, the patient is stable for barney sition out of the ICU or even discharge home if Cardiology is okay with it. She has no further requi rements for inpatient Pulmonary or Critical Care opinion, and when she leaves this location, I will s ign off. Please call with additional questions or concerns.
[2018-05-28] MEDS ORDERED: Cipro 250 MG TAB PO SCH (06:00)
--- NOTE | 2018-05-28 06:48 | DIS ---
DATE OF DISCHARGE: 05/27/2018 DISCHARGE DISPOSITION: Home. FOLLOWUP: 1. Follow up with primary care physician, Dr. Houser, in 1 week. 2. Follow up with Neurology, Dr. Bailon, in 2 weeks. 3. Follow up with Cardiology, Dr. Diaz, in one week. 4. Outpatient cardiac rehab has been arranged. ALLERGIES: The patient is allergic to PENICILLIN and TETANUS VACCINE. DISCHARGE MEDICATIONS: Ciprofloxacin 500 mg twice a day for the next 5 days; Toprol-XL 50 mg daily; levothyroxine 25 mcg daily; omeprazole 20 mg on Friday, Friday and Friday; simvastatin 20 mg daily ; aspirin 325 mg daily. INPATIENT CONSULTANTS: Cardiology, Dr. Carlos Diaz; Neurology, Dr. White; Critical Care, Dr. Vicky cerda. INPATIENT PROCEDURES: The patient had cardiac catheterization as well as pacemaker placement this ad mission. DIAGNOSTIC TESTS: 1. Echocardiogram showed left ventricular ejection fraction 60% to 65% with [id number] aortic regurgitation, [id number] tricuspid regurgitation and moderate mitral regurgitation. 2. Carotid Doppler was negative for hemodynamically significant carotid stenosis. 3. CT scan of the brain noncontrast on 05/25/2018 was negative for acute findings. BRIEF HOSPITAL COURSE: The patient is an 82-year-old female with hypertension and hyperlipidemia, pr esented to the hospital with chest heaviness and shortness of breath of 3-4 days duration. Please re duarte to the history and physical for further details. The patient was admitted to the hospital with a diagnosis of congestive heart failure exacerbation. BNP on admission was 920. The patient had an echocardiogram as discussed above. She was found to rutledge ve high degree AV block requiring transfer to critical care unit. She was seen by Cardiology, Dr. Gaston Diaz and underwent cardiac catheterization as well as pacemaker placement. After cardiac ca theterization, the patient had a brief transient ischemic attack that has completely resolved. She w as evaluated by Neurology Service as well. MRI of the brain could not be done. She appears stable f or discharge. FINAL DIAGNOSES: 1. Second-degree atrioventricular block, status post pacemaker placement. 2. Transient ischemic attack post-cardiac catheterization, resolved. 3. Coronary artery disease, mild. Official cath report pending at this time. 4. Hypertension. 5. Hyperlipidemia. 6. Family history of heart disease. 7. Urinary tract infection. Urine culture showed Klebsiella pneumoniae. 8. PENICILLIN allergy. 9. Mild hyponatremia. 10. Hypophosphatemia. 11. Chronic kidney disease, stage 3. 12. Obesity with a BMI of 30.5. 13. Chronic normochromic normocytic anemia. 14. Hypothyroidism. 15. Gastroesophageal reflux disease. Repeat BMP after 1 week is recommended. Primary care physician is advised to follow.
== END 2018-05-27 12:00 | disposition home or self-care (01) | DRG 242 ==
LOC: ERS 15:49 → 2NO 18:53 → CCU 05-25 03:43
PROVIDERS: ADMIT Internal Medicine; ATTEND Internal Medicine
PROC: 4A023N7 Measurement of Cardiac Sampling and Pressure, Left Heart, Percutaneous Approach (ICD-10-PCS; 2018-05-25)
PROC: B2111ZZ Fluoroscopy of Multiple Coronary Arteries using Low Osmolar Contrast (ICD-10-PCS; 2018-05-25)
PROC: B2151ZZ Fluoroscopy of Left Heart using Low Osmolar Contrast (ICD-10-PCS; 2018-05-25)
PROC: 0JH606Z Insertion of Pacemaker, Dual Chamber into Chest Subcutaneous Tissue and Fascia, Open Approach (ICD-10-PCS; principal; 2018-05-26)
PROC: 02HK3JZ Insertion of Pacemaker Lead into Right Ventricle, Percutaneous Approach (ICD-10-PCS; 2018-05-26)
PROC: 02H63JZ Insertion of Pacemaker Lead into Right Atrium, Percutaneous Approach (ICD-10-PCS; 2018-05-26)
DX: I13.0 Hypertensive heart and chronic kidney disease with heart failure and stage 1 through stage 4 chronic kidney disease, or unspecified chronic kidney disease (principal); J96.01 Acute respiratory failure with hypoxia; I50.33 Acute on chronic diastolic (congestive) heart failure; I44.2 Atrioventricular block, complete; I24.8 Other forms of acute ischemic heart disease; N39.0 Urinary tract infection, site not specified; J91.0 Malignant pleural effusion; G45.9 Transient cerebral ischemic attack, unspecified; E87.1 Hypo-osmolality and hyponatremia; B96.89 Other specified bacterial agents as the cause of diseases classified elsewhere; B96.1 Klebsiella pneumoniae [K. pneumoniae] as the cause of diseases classified elsewhere; E78.5 Hyperlipidemia, unspecified; E03.9 Hypothyroidism, unspecified; I44.1 Atrioventricular block, second degree; K21.9 Gastro-esophageal reflux disease without esophagitis; N18.3 Chronic kidney disease, stage 3 (moderate); E87.6 Hypokalemia; C80.1 Malignant (primary) neoplasm, unspecified; I08.3 Combined rheumatic disorders of mitral, aortic and tricuspid valves; I25.10 Atherosclerotic heart disease of native coronary artery without angina pectoris; E83.39 Other disorders of phosphorus metabolism; E66.9 Obesity, unspecified; Z68.30 Body mass index [BMI] 30.0-30.9, adult; D63.1 Anemia in chronic kidney disease; I69.398 Other sequelae of cerebral infarction; H54.62 Unqualified visual loss, left eye, normal vision right eye
CPT/HCPCS: 36415; 70450; 71045; 80048; 83735; 83880; 84443; 85025; 85347; 87077; 87086; 87186; 93005; 93010; 93306; 93458; 93798; 93880; 99152; 99153; C1769; C1785; C1898; J1644; J1940; J1956; J2001; J2185; J2250; J2405; J3010; J3370; J3490

== ENCOUNTER 2019-02-03 13:59 | Outpatient (CLI) | payer MEDICARE, BC ==
--- NOTE | 2019-02-05 08:55 | PFT ---
PATIENT HISTORY: HEIGHT: WEIGHT: SMOKER: HOW LONG: PACKS PER DAY PRODUCTIVE COUGH: LUNG DISEASE: PHYSICIAN INTERPRETATION FINAL REPORT: Expiratory Flows and Vital Capacity where normal. RV decreased Total Lung Capacity is lower limit of normal. Gas transfer is at the lower limit of normal. Airway resistance is increased. IMPRESSION: Reduced Diffusion capacity. Normal Expiratory Flows and Vital Capacity. Rule out interstitial lung disease for a low Diffusion Capacity. Computational Mathematician: N[employer]LEON Constitutional Law Professor: NAPOLEON MARIE
== END 2019-02-03 14:00 | disposition home or self-care (01) ==
LOC: CP 13:59
PROVIDERS: ATTEND Internal Medicine Cardiovascular Disease
DX: R06.02 Shortness of breath (principal)
CPT/HCPCS: 94010; 94727; 94729

== ENCOUNTER 2019-05-06 08:18 | Outpatient (CLI) | payer MEDICARE, BC ==
[2019-05-06 10:42] LABS: #Eosinphils 0.2 thou/uL (0.0-0.7); #Lymphocytes 3.5 thou/uL (1.20-3.40); #Monocytes 0.9 thou/uL (0.11-0.59); %Basophils 0.5 % (0.0-1.0); %Eosinophils 2.4 % (0.0-10.0); %Lymphocytes 36.5 % (21.0-51.0); %Monocytes 8.9 % (0.0-10.0); %Neutrophils 51.7 % (42.0-75.0); Hemoglobin 14.1 g/dL (12.0-16.0); Mean Corpuscular HGB CONC 33.3 g/dL (32.0-36.0); Mean Corpuscular Hemoglobin 32.2 pg (27.0-31.0); Mean Corpuscular Volume 96.8 fL (78.0-98.0); Mean Platelet Volume 7.5 fL (7.4-10.4); Platelet Count 248 thou/uL (130-400); RBC Distribution Width 11.5 % (11.5-14.5); Red Blood Cell (RBC) Count 4.39 mill/uL (4.20-5.40); White Blood Cell (WBC) Count 9.6 thou/uL (4.8-10.8)
[2019-05-06 10:47] LABS: INR-International Normal Ratio 1.2; Prothrombin Time 14.9 SEC (12.0-14.7)
[2019-05-06 10:58] LABS: Bilirubin Negative (Negative); Blood, Urine Negative (Negative); Clarity Clear (Clear); Glucose, Urine (Dipstick) Normal (Negative); Leukocyte Negative Leu/uL (Negative); Nitrite Negative (Negative); Protein, Urine (Dipstick) Negative (Neg-Trace); RBC/HPF 0-3 HPF (0-3); Squamous Epithelial 0-3 HPF (0-3); Urobilinogen Normal mg/dL (Less than 2); WBC/HPF 0-3 HPF (0-3)
[2019-05-06 10:59] LABS: Bacteria/HPF 1+ HPF (None Seen)
[2019-05-06 11:01] LABS: Anion Gap 15 mmol/L (10-20); BUN (Urea Nitrogen) 23 mg/dL (9.8-20.1); Calc. Creatinine Clearance 0 mL/min (70-130); Calcium 10.4 mg/dL (7.8-10.44); Carbon Dioxide 26 mmol/L (23-31); Chloride 100 mmol/L (98-107); Estimated GFR-MDRD 62; Glucose 92 mg/dL (83-110); Potassium 3.8 mmol/L (3.5-5.1); Sodium 137 mmol/L (136-145)
== END 2019-05-06 08:19 | disposition home or self-care (01) ==
LOC: LABBT 08:18
PROVIDERS: ATTEND Orthopaedic Surgery
DX: Z01.812 Encounter for preprocedural laboratory examination (principal); M17.11 Unilateral primary osteoarthritis, right knee
CPT/HCPCS: 80048; 81001; 85025; 85610; 87081; 87086

== ENCOUNTER 2019-05-17 07:06 | Day surgery (SDC) | payer MEDICARE, BC ==
[2019-05-06 10:32] VITALS: BMI 30.9
--- NOTE | 2019-05-13 08:40 | HP ---
HISTORY OF PRESENT ILLNESS: The patient is an 83-year-old female with a long history of progressive right knee pain without specific injury. She has had persistent symptoms despite rest, restriction of activities and previous cortisone injections. Pain became worse recently after mowing her yard. She has weightbearing pain, it is now interfering with day-to-day activities like walking, getting dressed, and sleeping. PAST MEDICAL HISTORY: The patient has history of atrial fibrillation and congestive heart failure, she is followed by Dr. Diaz. She has been seen and cleared for surgery. She does take Eliquis, but to stop this 4 days prior to surgery. She has also had a hysterectomy, cholecystectomy and has venous insufficiency, hypertension, hypothyroidism, reflux, and high cholesterol. CURRENT MEDICATIONS: Include: 1. Omeprazole. 2. Ocuvite. 3. Calcium and vitamin D. 4. Fish oil. 5. Red yeast rice. 6. Simvastatin. 7. Low-dose aspirin. 8. Synthroid. 9. Amlodipine. 10. Losartan. 11. Tramadol. 12. Metoprolol. 13. Eliquis. ALLERGIC: To lisinopril, amoxicillin, penicillin, tetanus toxoid and Cozaar. FAMILY HISTORY: Otherwise unremarkable. SOCIAL HISTORY: Otherwise unremarkable. REVIEW OF SYSTEMS: Otherwise unremarkable. PHYSICAL EXAMINATION: GENERAL: Reveals a healthy elderly female. HEENT: Unremarkable. NECK: Supple. CHEST: Clear. HEART: Regular rate and rhythm. ABDOMEN: Soft, nontender. PELVIC: Deferred. RECTAL: Deferred. BREAST: Deferred. EXTREMITIES: Pertinent findings for the right knee, there is no definite effusion. There is mild varus deformity. There is tenderness and crepitus over the medial joint line. Range of motion is 2-120 degrees. There is no instability. Pulses are trace. There is right antalgic gait. There is no instability. There is no pain to range of motion of the right hip. DIAGNOSTIC STUDIES: X-rays of the right knee reveal [id number] collapse medially. IMPRESSION: 1. Degenerative arthritis, right knee. 2. History of atrial fibrillation and congestive heart failure. 3. Hypertension. 4. Hypothyroidism. 5. Venous insufficiency. PLAN: Right total knee replacement. The nature of the surgery, length of recovery, and potential complications such as infection, loss of motion, incomplete relief, delayed wound healing, neurovascular injury, thromboembolic phenomena, possible transfusion, need for revision have been discussed in detail. Job ID: [id number]
[2019-05-17] MEDS ORDERED: Levofloxacin 500 mg/D5W 100 ml Premix Bag ONE (07:26)
[2019-05-17] MEDS ORDERED: Sodium Chloride 0.9% 100 ML ONE (07:26)
[2019-05-17] MEDS ORDERED: Tranexamic Acid 1,000 MG/10 ML VIAL ONE ×2 (07:26→11:38)
[2019-05-17] MEDS ORDERED: Fentanyl 100 MCG/2 ML VIAL ONE (07:47)
[2019-05-17] MEDS ORDERED: Midazolam HCl 2 mg/2 ml Vial ONE (07:47)
[2019-05-17] MEDS ORDERED: HYDROcodone/Acetaminophen 10/325 mg Tablet PO PRN ×3 (08:16→12:46)
[2019-05-17] MEDS ORDERED: Ropivacaine HCl/PF 250 ML in Premix Bag 1 BAG NERVE BLCK SCH (08:16)
[2019-05-17] MEDS ORDERED: Zolpidem Tartrate 5 MG TAB PO PRN ×2 (08:16→12:46)
[2019-05-17] MEDS ORDERED: Fentanyl 100 MCG/2 ML VIAL SLOW IVP PRN ×3 (08:16→12:46)
[2019-05-17] MEDS ORDERED: traMADol HCl 50 MG TAB PO PRN ×2 (08:16)
[2019-05-17] MEDS ORDERED: Promethazine HCl 25 MG/ML VIAL IM PRN (08:16)
[2019-05-17] MEDS ORDERED: Ondansetron PF 4 MG/2 ML Vial IVP PRN ×2 (08:16→12:46)
[2019-05-17] MEDS ORDERED: Lidocaine 1% (PF) 30 ML VIAL ONE (08:18)
[2019-05-17] MEDS ORDERED: Bupivacaine/Epinephrine 0.25% 30 ML VIAL ONE (10:45)
[2019-05-17] MEDS ORDERED: Tranexamic Acid 1,000 MG in Sodium Chloride 0.9% 100 ML IVPB SCH ×2 (11:30→11:43)
--- NOTE | 2019-05-17 11:54 | RAD ---
XR Knee Rt 2 View History: Total knee postoperative Comparison: None. Findings: Satisfactory postoperative appearance right total knee arthroplasty and patellar resurfacin g. Expected postoperative gas and edema. Impression: Satisfactory postoperative appearance.
[2019-05-17] MEDS ORDERED: diphenhydrAMINE 25 MG CAP PO PRN (12:46)
[2019-05-17] MEDS ORDERED: Acetaminophen 325 MG TAB PO PRN (12:46)
[2019-05-17] MEDS ORDERED: Promethazine HCl 25 MG/ML VIAL SLOW IVP PRN (12:46)
--- NOTE | 2019-05-17 12:53 | OP ---
DATE OF PROCEDURE: 05/17/2019 [employer] PROJECT MANAGER: Antonietta Newberry PA-C ANESTHESIA: General plus adductor canal and sciatic nerve blocks. PREOPERATIVE DIAGNOSIS: Degenerative arthritis, right knee. POSTOPERATIVE DIAGNOSIS: Degenerative arthritis, right knee. PROCEDURE PERFORMED: Right total knee replacement with computer-assisted navigation with cemented [place] triathlon components (#3 femoral component, #3 primary tibial base plate with 11 mm CS plastic insert, and all-plastic A29 patellar component). DESCRIPTION OF PROCEDURE: After satisfactory anesthesia was induced in supine position, sequential compression device was placed on the nonoperative leg throughout the procedure. The right leg was then prepped and draped in routine sterile fashion. The right leg was elevated, exsanguinated with an Esmarch bandage and the tourniquet was inflated to 250 mmHg. A gently curved medial parapatellar incision was made, carried down through the subcutaneous tissues. Bleeding points were controlled with Bovie cautery. Medial parapatellar arthrotomy was performed and the patella dislocated laterally, and portion of the fat pad was excised for exposure. There was marked degenerative arthritis of the knee especially medially with large areas of exposed bone. Meniscal remnants and osteophytes were removed. Using the appropriate guides and [employer] pinless navigation system, the distal femoral and proximal tibial articular surfaces were excised with an oscillating saw to accept the trial components. It was felt #3 femoral component, #3 tibial base plate with 11 mm CS plastic insert gave appropriate size, fit, stability, and correction of the preoperative deformity. The patellar articular surface was excised to accept an all-plastic A29 patellar component. There was good range of motion and good patellar tracking. The trial components were removed. The knee was copiously irrigated with pulsatile lavage. The bony surfaces were thoroughly cleaned and dried. The permanent components were then cemented in a single stage using one pack of cement premixed with 1 g of tobramycin powder. Excess cement was removed. There was again good fit, stability of the components. The knee was then copiously irrigated. The medial retinaculum and quadriceps mechanism were closed with interrupted #2 Vicryl and a running #2 Quill. Subcutaneous tissues were closed with a running 0 Quill suture, and the skin was closed with running subcuticular 3-0 Monoderm and SurgiSeal skin adhesive. A sterile bulky compressive dressing was applied and the tourniquet was deflated after 64 minutes. The foot promptly pinked up. The sequential compression device was placed on her operated leg and she was awakened and taken to the recovery room in stable condition. There were no apparent intraoperative complications. The estimated blood loss was less than 100 mL. Job ID: [id number]
[2019-05-17] MEDS: Ketorolac Tromethamine 30 MG/ML VIAL IVP SCH ×3 (13:27→23:46)
[2019-05-17] MEDS ORDERED: Bupivacaine HCl 0.5%/Epinephrine 1:200,000/PF 30 ml Vial ONE (15:26)
[2019-05-17] MEDS ORDERED: Ropivacaine 0.2% HCl/PF (40 MG/20 ML VIAL) ONE (15:26)
[2019-05-17] MEDS ORDERED: ePHEDrine 50 MG/ML VIAL ONE (16:22)
[2019-05-17] MEDS ORDERED: Dexamethasone 20 MG/5 ML VIAL ONE (16:22)
[2019-05-17] MEDS ORDERED: Rocuronium Bromide 10 MG/ML (10ML VIAL) ONE (16:22)
[2019-05-17] MEDS ORDERED: Ketorolac Tromethamine 30 MG/ML VIAL ONE (16:22)
[2019-05-17] MEDS ORDERED: Ondansetron PF 4 MG/2 ML Vial ONE (16:22)
[2019-05-17] MEDS ORDERED: PROPOFOL 200 MG/20 ML VIAL ONE (16:22)
[2019-05-17] MEDS ORDERED: Ketorolac Tromethamine 30 MG/ML VIAL IVP SCH (18:00)
[2019-05-17] MEDS ORDERED: Vancomycin HCl 1 GM in Premix Bag 1 BAG IVPB SCH (19:00)
[2019-05-17] MEDS: Atorvastatin Calcium 10 MG TAB PO SCH (19:53)
[2019-05-17] MEDS: Magnesium Oxide 250 MG TAB PO SCH (19:53)
[2019-05-18 04:50] LABS: Hemoglobin 10.4 g/dL (12.0-16.0); Mean Corpuscular HGB CONC 33.8 g/dL (32.0-36.0); Mean Corpuscular Hemoglobin 32.5 pg (27.0-31.0); Mean Corpuscular Volume 96.1 fL (78.0-98.0); Mean Platelet Volume 7.3 fL (7.4-10.4); Platelet Count 180 thou/uL (130-400); RBC Distribution Width 11.2 % (11.5-14.5); Red Blood Cell (RBC) Count 3.21 mill/uL (4.20-5.40); White Blood Cell (WBC) Count 17.2 thou/uL (4.8-10.8)
[2019-05-18] MEDS: Ketorolac Tromethamine 30 MG/ML VIAL IVP SCH ×4 (06:31→23:57)
[2019-05-18] MEDS: HYDROcodone/Acetaminophen 10/325 mg Tablet PO PRN ×2 (06:32→20:05)
[2019-05-18] MEDS: Levothyroxine Sodium 25 MCG TAB PO SCH (06:32)
[2019-05-18] MEDS: Senokot S 8.6-50 MG TAB PO SCH ×2 (08:06→20:06)
[2019-05-18] MEDS: Aspirin 81 mg Enteric Coated Tablet PO SCH (08:07)
[2019-05-18] MEDS: Multivitamin W/ Minerals 1 TAB PO SCH (08:07)
[2019-05-18] MEDS: Calcium Carbonate + Vit D 1 TAB PO SCH (08:07)
[2019-05-18] MEDS ORDERED: OMEGA PO SCH (09:00)
[2019-05-18] MEDS ORDERED: DHA PO SCH (09:00)
[2019-05-18] MEDS ORDERED: FISH OIL PO SCH (09:00)
[2019-05-18] MEDS ORDERED: Non-Formulary Item 1 EACH (Biotin [Biotin] 5,000 MCG) PO SCH (09:00)
[2019-05-18] MEDS ORDERED: EPA PO SCH (09:00)
[2019-05-18] MEDS ORDERED: RED YEAST RICE 600 MG PO SCH (09:00)
[2019-05-18] MEDS: Apixaban 2.5 MG TAB PO SCH ×2 (10:07→20:06)
[2019-05-18] MEDS: Losartan 25 MG TAB PO SCH (10:07)
[2019-05-18] MEDS: Furosemide 20 MG TAB PO SCH (10:07)
--- NOTE | 2019-05-18 11:10 | PDOC.HOSPP ---
- Subjective Encounter Date: 05/18/19 Encounter Time: 09:00 Subjective: Patient seen and examined. No new complaints. No overnight events - Objective Vital Signs & Weight: Vital Signs (12 hours) Temp Pulse Resp BP Pulse Ox 05/18/19 07:07 98.1 F 76 20 106/64 98 05/18/19 04:29 97.7 F 75 18 118/68 94 L 05/17/19 23:47 98.2 F 77 18 128/70 92 L Weight Weight 175 lb I&O: 05/17/19 05/18/19 05/19/19 06:59 06:59 06:59 Intake Total 1790 Output Total 675 Balance 1115 Result Diagrams: 05/18/19 04:30 Hospitalist ROS - Review of Systems Constitutional: denies: fever, chills, sweats, weakness, malaise, other Eyes: denies: pain, vision change, conjunctivae inflammation, eyelid inflammation, redness, other ENT: denies: ear pain, ear discharge, nose pain, nose discharge, nose congestion , mouth pain, mouth swelling, throat pain, throat swelling, other Respiratory: denies: cough, dry, shortness of breath, hemoptysis, SOB with excertion, pleuritic pain, sputum, wheezing, other Cardiovascular: denies: chest pain, palpitations, orthopnea, paroxysmal noc. dyspnea, edema, light headedness, other Gastrointestinal: denies: nausea, vomiting, abdominal pain, diarrhea, constipation, melena, hematochezia, other Genitourinary: denies: dysuria, frequency, incontinence, hematuria, retention, other Musculoskeletal: denies: neck pain, shoulder pain, arm pain, back pain, hand pain, leg pain, foot pain, other Skin: denies: rash, lesions, bryan, bruising, other - Medication Medications: Active Medications Generic Name Dose Route Start Last Admin Trade Name Freq PRN Reason Stop Dose Admin Hydrocodone Bitart/Acetaminophen 2 tab 05/17/19 12:46 05/18/19 06:32 [place] 10/325 PO 2 tab Q4H PRN Administration Severe Pain (7-10) Apixaban 2.5 mg 05/18/19 09:00 05/18/19 10:07 Eliquis PO Not Given BID LINDY Aspirin 81 mg 05/18/19 09:00 05/18/19 08:07 Ecotrin PO 81 mg DAILY LINDY Administration Atorvastatin Calcium 10 mg 05/17/19 21:00 05/17/19 19:53 Lipitor PO 10 mg QPM LINDY Administration Calcium/Vitamin D 1 tab 05/18/19 09:00 05/18/19 08:07 Caltrate 600 + Vit D PO 1 tab DAILY LINDY Administration Furosemide 20 mg 05/18/19 09:00 05/18/19 10:07 Lasix PO Not Given DAILY LINDY Iron/Minerals/Multivitamins 1 tab 05/18/19 09:00 05/18/19 08:07 Theragran M PO 1 tab DAILY LINDY Administration Ketorolac Tromethamine 15 mg 05/17/19 12:00 05/18/19 06:31 Toradol IVP 05/19/19 06:01 15 mg Q6HR LINDY Administration Levothyroxine Sodium 25 mcg 05/18/19 06:00 05/18/19 06:32 Synthroid PO 25 mcg 0600 LINDY Administration Losartan Potassium 50 mg 05/18/19 09:00 05/18/19 10:07 Cozaar PO Not Given DAILY LINDY Magnesium Oxide 1,000 mg 05/17/19 21:00 05/17/19 19:53 Magnesium Oxide PO 1,000 mg HS LINDY Administration Metoprolol Succinate 100 mg 05/18/19 09:00 05/18/19 10:07 Toprol Xl PO Not Given DAILY LINDY Pantoprazole Sodium 40 mg 05/18/19 09:00 05/18/19 08:07 Protonix PO 40 mg DAILY LINDY Administration Senna/Docusate Sodium 2 tab 05/18/19 09:00 05/18/19 08:06 Senokot S PO 2 tab BID LINDY Administration - Exam General Appearance: NAD, awake alert Eye: PERRL, anicteric sclera ENT: normocephalic atraumatic, no oropharyngeal lesions Neck: supple, symmetric, no JVD, no thyromegaly Heart: RRR, no murmur, no gallops, no rubs, normal peripheral pulses Respiratory: CTAB, no wheezes Gastrointestinal: soft, non-tender, non-distended, normal bowel sounds Extremities: no cyanosis, no clubbing, no edema Extremities - other findings: surgical site with dressing, nerve block in place Skin: normal turgor, no lesions Neurological: cranial nerve grossly intact, no focal deficits Musculoskeletal: normal tone, normal strength Psychiatric: normal affect, normal behavior, A&O x 3 Hosp A/P (1) Status post total right knee replacement Code(s): Z96.651 - PRESENCE OF RIGHT ARTIFICIAL KNEE JOINT Status: Acute (2) Leucocytosis Code(s): D72.829 - ELEVATED WHITE BLOOD CELL COUNT, UNSPECIFIED Status: Acute Plan: may be reactive (3) Anemia, normocytic normochromic Code(s): D64.9 - ANEMIA, UNSPECIFIED Status: Chronic (4) Obesity (BMI 30.0-34.9) Code(s): E66.9 - OBESITY, UNSPECIFIED Status: Chronic (5) Osteoarthritis Code(s): M19.90 - UNSPECIFIED OSTEOARTHRITIS, UNSPECIFIED SITE Status: Chronic (6) HLD (hyperlipidemia) Code(s): E78.5 - HYPERLIPIDEMIA, UNSPECIFIED Status: Chronic (7) HTN (hypertension) Code(s): I10 - ESSENTIAL (PRIMARY) HYPERTENSION Status: Chronic (8) Hypothyroid Code(s): E03.9 - HYPOTHYROIDISM, UNSPECIFIED Status: Chronic - Plan old records reviewed/req, PT/OT continue aspirin for DVT prophylaxis her pain is controlled nerve block as per anesthesia continue PT as per protocol her home medication reconcileed discharge decision as per primary team medication reviewed as above, symptomatic treatment code full code once bleeding is no longer issue at surgical site, resume low dose elliquis
[2019-05-18] MEDS: Atorvastatin Calcium 10 MG TAB PO SCH (20:06)
[2019-05-18] MEDS: Magnesium Oxide 250 MG TAB PO SCH (20:07)
[2019-05-19] MEDS: Levothyroxine Sodium 25 MCG TAB PO SCH (06:46)
[2019-05-19] MEDS: Ketorolac Tromethamine 30 MG/ML VIAL IVP SCH (06:46)
[2019-05-19] MEDS: Multivitamin W/ Minerals 1 TAB PO SCH (08:20)
[2019-05-19] MEDS: Senokot S 8.6-50 MG TAB PO SCH ×2 (08:20→20:49)
[2019-05-19] MEDS: Calcium Carbonate + Vit D 1 TAB PO SCH (08:20)
[2019-05-19] MEDS: Apixaban 2.5 MG TAB PO SCH (08:20)
[2019-05-19] MEDS: Aspirin 81 mg Enteric Coated Tablet PO SCH (08:20)
[2019-05-19] MEDS: Furosemide 20 MG TAB PO SCH (08:21)
[2019-05-19] MEDS: HYDROcodone/Acetaminophen 10/325 mg Tablet PO PRN (08:22)
[2019-05-19] MEDS: Losartan 25 MG TAB PO SCH (08:24)
[2019-05-19] MEDS ORDERED: Apixaban 2.5 MG TAB PO SCH (12:45)
[2019-05-19 13:22] LABS: #Eosinphils 0.5 thou/uL (0.0-0.7); #Lymphocytes 2.8 thou/uL (1.20-3.40); #Monocytes 1.5 thou/uL (0.11-0.59); #Neutrophils 7.7 thou/uL (1.40-6.50); %Basophils 0.3 % (0.0-1.0); %Eosinophils 3.9 % (0.0-10.0); %Lymphocytes 22.2 % (21.0-51.0); %Neutrophils 61.6 % (42.0-75.0); Hemoglobin 10.3 g/dL (12.0-16.0); Mean Corpuscular HGB CONC 33.7 g/dL (32.0-36.0); Mean Corpuscular Hemoglobin 32.9 pg (27.0-31.0); Mean Corpuscular Volume 97.7 fL (78.0-98.0); Mean Platelet Volume 7.4 fL (7.4-10.4); Platelet Count 207 thou/uL (130-400); RBC Distribution Width 11.3 % (11.5-14.5); Red Blood Cell (RBC) Count 3.14 mill/uL (4.20-5.40); White Blood Cell (WBC) Count 12.5 thou/uL (4.8-10.8)
[2019-05-19 13:41] LABS: Anion Gap 12 mmol/L (10-20); BUN (Urea Nitrogen) 32 mg/dL (9.8-20.1); Calc. Creatinine Clearance 46 mL/min (70-130); Calcium 8.8 mg/dL (7.8-10.44); Carbon Dioxide 27 mmol/L (23-31); Chloride 96 mmol/L (98-107); Estimated GFR-MDRD 46; Glucose 104 mg/dL (83-110); Potassium 4.9 mmol/L (3.5-5.1); Sodium 130 mmol/L (136-145)
[2019-05-19] MEDS: Atorvastatin Calcium 10 MG TAB PO SCH (20:48)
[2019-05-19] MEDS: Magnesium Oxide 250 MG TAB PO SCH (20:49)
[2019-05-19] MEDS: traMADol HCl 50 MG TAB PO PRN (20:52)
--- NOTE | 2019-05-19 22:55 | PDOC.HOSPP ---
- Subjective Encounter Date: 05/19/19 Encounter Time: 13:00 Subjective: Patient seen and examined for med mngt. No CP. Pain controlled. No new complaints. No overnight events - Objective Vital Signs & Weight: Vital Signs (12 hours) Temp Pulse Resp BP BP Pulse Ox 05/19/19 21:04 98.7 F 83 16 137/80 05/19/19 15:03 97.8 F 85 14 96/62 92 L 05/19/19 11:43 97.8 F 96 16 90/53 L 93 L Weight Admit Weight 175 lb Weight 175 lb I&O: 05/18/19 05/19/19 05/20/19 06:59 06:59 06:59 Intake Total 1790 1080 Output Total 675 Balance 1115 1080 Result Diagrams: 05/19/19 13:04 05/19/19 13:04 EKG Reviewed by me: Yes (SR) Hospitalist ROS - Review of Systems Respiratory: denies: cough, dry, shortness of breath, hemoptysis, SOB with excertion, pleuritic pain, sputum, wheezing, other Cardiovascular: denies: chest pain, palpitations, orthopnea, paroxysmal noc. dyspnea, edema, light headedness, other Gastrointestinal: denies: nausea, vomiting, abdominal pain, diarrhea, constipation, melena, hematochezia, other - Medication Medications: Active Medications Generic Name Dose Route Start Last Admin Trade Name Freq PRN Reason Stop Dose Admin Hydrocodone Bitart/Acetaminophen 2 tab 05/17/19 12:46 05/19/19 08:22 [place] 10/325 PO 2 tab Q4H PRN Administration Severe Pain (7-10) Aspirin 81 mg 05/18/19 09:00 05/19/19 08:20 Ecotrin PO 81 mg DAILY LINDY Administration Atorvastatin Calcium 10 mg 05/17/19 21:00 05/19/19 20:48 Lipitor PO 10 mg QPM LINDY Administration Calcium/Vitamin D 1 tab 05/18/19 09:00 05/19/19 08:20 Caltrate 600 + Vit D PO 1 tab DAILY LINDY Administration Diphenhydramine HCl 25 mg 05/17/19 12:46 05/19/19 06:46 Benadryl PO 25 mg Q6H PRN Administration Itching Fentanyl 50 mcg 05/17/19 12:46 05/18/19 18:06 Sublimaze SLOW IVP 50 mcg Q30MIN PRN Administration Moderate Pain (4-6) Furosemide 20 mg 05/18/19 09:00 05/19/19 08:21 Lasix PO 20 mg DAILY LINDY Administration Ropivacaine 250 ml/ Device 250 mls @ 10 mls/hr 05/17/19 08:16 05/19/19 17:40 NERVE BLCK 250 mls INF LINDY Administration Iron/Minerals/Multivitamins 1 tab 05/18/19 09:00 05/19/19 08:20 Theragran M PO 1 tab DAILY LINDY Administration Levothyroxine Sodium 25 mcg 05/18/19 06:00 05/19/19 06:46 Synthroid PO 25 mcg 0600 LINDY Administration Losartan Potassium 50 mg 05/18/19 09:00 05/19/19 08:24 Cozaar PO 50 mg DAILY LINDY Administration Magnesium Oxide 1,000 mg 05/17/19 21:00 05/19/19 20:49 Magnesium Oxide PO 1,000 mg HS LINDY Administration Metoprolol Succinate 100 mg 05/18/19 09:00 05/19/19 08:19 Toprol Xl PO 100 mg DAILY LINDY Administration Pantoprazole Sodium 40 mg 05/18/19 09:00 05/19/19 08:21 Protonix PO 40 mg DAILY LINDY Administration Senna/Docusate Sodium 2 tab 05/18/19 09:00 05/19/19 20:49 Senokot S PO 2 tab BID LINDY Administration Sodium Chloride 10 ml 05/17/19 12:46 05/19/19 20:51 Flush - Normal Saline IVF 10 ml PRN PRN Administration Saline Flush Tramadol HCl 50 mg 05/17/19 08:16 05/18/19 17:05 Ultram PO 50 mg Q6H PRN Administration Mild Pain (1-3) Tramadol HCl 100 mg 05/17/19 12:46 05/19/19 20:52 Ultram PO 100 mg Q6H PRN Administration Moderate Pain (4-6) - Exam General Appearance: NAD Neck: supple, no JVD Heart: RRR, no gallops Respiratory: CTAB, no rales Gastrointestinal: soft, non-tender, normal bowel sounds Extremities: no edema Hosp A/P (1) Paroxysmal A-fib Code(s): I48.0 - PAROXYSMAL ATRIAL FIBRILLATION Status: Chronic (2) Obesity (BMI 30.0-34.9) Code(s): E66.9 - OBESITY, UNSPECIFIED Status: Chronic (3) HLD (hyperlipidemia) Code(s): E78.5 - HYPERLIPIDEMIA, UNSPECIFIED Status: Chronic (4) HTN (hypertension) Code(s): I10 - ESSENTIAL (PRIMARY) HYPERTENSION Status: Chronic - Plan DVT proph w/SCDs Anticoag restarted Cont Toprol WBC improving Cont PT/OT Cont other meds
[2019-05-20] MEDS: Levothyroxine Sodium 25 MCG TAB PO SCH (05:14)
[2019-05-20] MEDS: traMADol HCl 50 MG TAB PO PRN ×2 (05:23→13:37)
[2019-05-20] MEDS ORDERED: Apixaban 5 MG TAB PO SCH (09:00)
[2019-05-20] MEDS ORDERED: Apixaban 2.5 MG TAB PO SCH (09:00)
[2019-05-20] MEDS: Losartan 25 MG TAB PO SCH (10:11)
[2019-05-20] MEDS: Aspirin 81 mg Enteric Coated Tablet PO SCH (10:11)
[2019-05-20] MEDS: Calcium Carbonate + Vit D 1 TAB PO SCH (10:12)
[2019-05-20] MEDS: Multivitamin W/ Minerals 1 TAB PO SCH (10:12)
[2019-05-20] MEDS: Senokot S 8.6-50 MG TAB PO SCH (10:12)
[2019-05-20] MEDS: Furosemide 20 MG TAB PO SCH (10:12)
[2019-05-20 11:44] VITALS: BP 129/58; TEMP 97.8
== END 2019-05-20 14:00 | disposition home or self-care (01) ==
LOC: SDC 07:06 → SJJU 09:27 → SDC 05-20 14:00
PROVIDERS: ATTEND Orthopaedic Surgery
PROC: 0SRC0JA Replacement of Right Knee Joint with Synthetic Substitute, Uncemented, Open Approach (ICD-10-PCS; principal; 2019-05-17)
PROC: 8E0YXBZ Computer Assisted Procedure of Lower Extremity (ICD-10-PCS; 2019-05-17)
PROC: 3E0T3BZ Introduction of Anesthetic Agent into Peripheral Nerves and Plexi, Percutaneous Approach (ICD-10-PCS; 2019-05-17)
PROC: 3E0T3BZ Introduction of Anesthetic Agent into Peripheral Nerves and Plexi, Percutaneous Approach (ICD-10-PCS; 2019-05-17)
DX: M17.11 Unilateral primary osteoarthritis, right knee (principal); G89.18 Other acute postprocedural pain; I11.0 Hypertensive heart disease with heart failure; I50.9 Heart failure, unspecified; E03.9 Hypothyroidism, unspecified; E78.00 Pure hypercholesterolemia, unspecified; K21.9 Gastro-esophageal reflux disease without esophagitis; I48.0 Paroxysmal atrial fibrillation; I87.2 Venous insufficiency (chronic) (peripheral); D72.829 Elevated white blood cell count, unspecified; D64.9 Anemia, unspecified; E78.5 Hyperlipidemia, unspecified; E66.9 Obesity, unspecified; Z68.31 Body mass index [BMI] 31.0-31.9, adult; Z79.01 Long term (current) use of anticoagulants; Z79.82 Long term (current) use of aspirin; Z79.899 Other long term (current) drug therapy; Z88.0 Allergy status to penicillin; Z88.7 Allergy status to serum and vaccine; Z88.8 Allergy status to other drugs, medicaments and biological substances
CPT/HCPCS: 20985; 27447; 64445; 64448; 73560; 80048; 85025; 85027; 97110; 97116 ×4; 97139 ×5; 97150 ×2; 97530; 98961; C1713; C1776; 36415; J0670; J1100; J1885; J1956; J2001; J2250; J2405; J2704; J2795; J3010; J3370; J3490; Q0163

== ENCOUNTER 2020-04-06 07:52 | Outpatient (CLI) | payer MEDICARE, BC, OTHER ==
[2020-04-07 12:45] LABS: SARS-CoV-2 MS2 Positive; SARS-CoV-2 N Gene Negative; SARS-CoV-2 S Gene Negative; SARS-CoV-2 by NAA Not Detected (NotDetected); SARS-CoV-2 orf1ab Negative
== END 2020-04-06 07:53 | disposition home or self-care (01) ==
LOC: LABBT 07:52
PROVIDERS: ATTEND Plastic Surgery
DX: Z20.828 Contact with and (suspected) exposure to other viral communicable diseases (principal)
CPT/HCPCS: 87635; U0003

== ENCOUNTER 2020-04-10 05:42 | Day surgery (SDC) | payer MEDICARE, BC ==
[2020-04-06 12:07] VITALS: BMI 28.8
[2020-04-10] MEDS ORDERED: EPINEPHrine 1 MG/ML AMP ONE ×2 (06:35→06:56)
[2020-04-10] MEDS ORDERED: Mineral Oil Sterile 10ML 10 ML UDCUP ONE (06:35)
[2020-04-10] MEDS ORDERED: Bupivacaine 0.25% HCL 30 ML VIAL ONE ×2 (06:35)
[2020-04-10] MEDS ORDERED: Lidocaine 1% w/Epinephrine 1:100K 20 ML VIAL ONE (06:35)
[2020-04-10] MEDS ORDERED: Fentanyl 100 MCG/2 ML VIAL ONE (06:40)
[2020-04-10 06:46] LABS: Anion Gap 15 mmol/L (10-20); BUN (Urea Nitrogen) 24 mg/dL (9.8-20.1); Calc. Creatinine Clearance 59 mL/min (70-130); Calcium 8.7 mg/dL (7.8-10.44); Carbon Dioxide 23 mmol/L (23-31); Chloride 105 mmol/L (98-107); Estimated GFR-MDRD 67; Glucose 87 mg/dL (83-110); Potassium 4.3 mmol/L (3.5-5.1); Sodium 139 mmol/L (136-145)
[2020-04-10] MEDS ORDERED: Sodium Chloride 0.9% 0 ML ONE (06:46)
[2020-04-10] MEDS ORDERED: Propofol 500 MG/50 ML VIAL ONE (07:30)
--- NOTE | 2020-04-10 12:18 | OP ---
DATE OF PROCEDURE: 04/10/2020 PREOPERATIVE DIAGNOSIS: Open wound, right knee. POSTOPERATIVE DIAGNOSIS: Open wound, right knee. PROCEDURES PERFORMED: 1. Debridement of right knee in preparation for skin grafting (12 cm2) (). 2. Split-thickness skin graft, right knee (12 cm2) ([id number]). DESCRIPTION OF PROCEDURE: Following induction of adequate anesthesia, the patient was prepped and draped in usual sterile fashion in supine position. The right knee was first debrided back to punctate bleeding. This was sharply done. The wound was copiously irrigated. A split-thickness skin graft was harvested from the ipsilateral thigh and meshed at 1-1/2 to 1. It was secured to the wound bed with 4-0 Prolene suture. A wound VAC was placed in the usual fashion. The patient tolerated the procedure well. Job ID: [id number]
[2020-04-10] MEDS ORDERED: PROPOFOL 200 MG/20 ML VIAL ONE (12:35)
[2020-04-10] MEDS ORDERED: Lidocaine 1% PF 5 ML VIAL ONE (12:35)
--- NOTE | 2020-04-16 10:41 | EKG ---
Test Reason : PREOP Blood Pressure : / mmHG Vent. Rate : 067 BPM Atrial Rate : 067 BPM P-R Int : 216 ms QRS Dur : 084 ms QT Int : 388 ms P-R-T Axes : 003 000 016 degrees QTc Int : 409 ms Sinus rhythm with 1st degree A-V block Otherwise normal ECG When compared with ECG of 01-MAR-2020 16:48, MD interval has increased Confirmed by KATRINA STEARNS, PAM ([id number] on 04/16/2020 10:41:12 AM Referred By: KATE Confirmed By:PAM HERNDON MD
== END 2020-04-10 09:45 | disposition home or self-care (01) ==
LOC: SDC 05:42
PROVIDERS: ATTEND Plastic Surgery
PROC: 0HRKX74 Replacement of Right Lower Leg Skin with Autologous Tissue Substitute, Partial Thickness, External Approach (ICD-10-PCS; principal; 2020-04-10)
DX: S81.001A Unspecified open wound, right knee, initial encounter (principal); Z79.82 Long term (current) use of aspirin; Z79.899 Other long term (current) drug therapy; Z88.0 Allergy status to penicillin; Z88.5 Allergy status to narcotic agent; Z88.7 Allergy status to serum and vaccine
CPT/HCPCS: 36415; 80048; 93005; 93010; J0171; J2704; J3010; S0020

== ENCOUNTER 2020-09-19 08:09 | Outpatient (CLI) | payer MEDICARE, BC ==
--- NOTE | 2020-09-19 08:36 | RAD ---
2 views chest: 09/19/2020 COMPARISON: 05/24/2018 HISTORY: Shortness of breath FINDINGS: There are postoperative clips in the right upper quadrant. There is elevation of the right hemidiaphragm. There is a dual lead left-sided transvenous pacing device. Mitral annulus calcification present. No pneumothorax or pleural fluid. No focal consolidation or alveolar edema. IMPRESSION: No radiographic evidence of acute cardiopulmonary disease.
== END 2020-09-19 08:10 | disposition home or self-care (01) ==
LOC: BICRAD 08:09
PROVIDERS: ATTEND Internal Medicine Critical Care Medicine
DX: R06.00 Dyspnea, unspecified (principal)
CPT/HCPCS: 71046